=== PATIENT | female | born 1990 | race African-American/Black ===

== ENCOUNTER 2018-10-06 18:30 | Emergency (ER) | payer MEDICAID ==
[~2018-10-06] VITALS: Ht 162.6 cm; Wt 109.0 kg
[2018-10-06] MEDS ORDERED: BACITRACIN ZINC OINT UDPKT TOP ONE (19:45)
[2018-10-06] MEDS ORDERED: IBUPROFEN 800MG TABLET PO ONE (19:45)
[2018-10-06 20:04] VITALS: BP 117/77
== END 2018-10-06 22:22 | disposition home or self-care (01) ==
LOC: ER 19:37
DX: L60.0 Ingrowing nail (principal); F17.200 Nicotine dependence, unspecified, uncomplicated
CPT/HCPCS: 11730; 99284

== ENCOUNTER 2021-05-09 15:10 | Emergency (ER) | payer MEDICAID ==
[~2021-05-09] VITALS: Ht 162.6 cm; Wt 127.0 kg
[2021-05-09 15:39] VITALS: BP 134/89
== END 2021-05-09 16:11 | disposition left against medical advice (07) ==
LOC: ER 15:10
DX: Z53.21 Procedure and treatment not carried out due to patient leaving prior to being seen by health care provider (principal)

== ENCOUNTER 2023-04-16 15:14 | Emergency (ER) | payer MEDICAID ==
[~2023-04-16] VITALS: Ht 162.6 cm; Wt 118.2 kg
[2023-04-16] MEDS ORDERED: ACETAMINOPHEN 325MG TABLET PO PRN (16:15)
[2023-04-16 16:27] LABS: BASOPHILS % 0.7 % (0.0-2.0); EOSINOPHILS % 1.7 % (0.0-5.0); HEMATOCRIT. 36.9 % (36.0-48.0); HEMOGLOBIN. 12.3 g/dL (12.0-16.0); LYMPHOCYTES % 38.6 % (20.0-50.0); MEAN CORPUSCULAR HEMOGLOBIN 26.2 pg (28.0-32.0); MEAN PLATELET VOLUME 8.3 fl (7.4-10.4); MONOCYTES % 7.6 % (2.0-8.0); NEUTROPHILS % 51.4 % (40.0-76.0); PLATELET 358 x1000/uL (130-400); RED BLOOD CELL COUNT 4.67 mill/uL (4.2-5.4); RED CELL DISTRIBUTION WIDTH 15.6 % (11.6-14.6)
[2023-04-16 16:39] LABS: CHLORIDE 110 mEq/L (98-107)
[2023-04-16] MEDS ORDERED: IBUP-2028 MT (17:46)
[2023-04-16 18:07] VITALS: BP 136/72
== END 2023-04-16 18:10 | disposition home or self-care (01) ==
LOC: ER 15:14
DX: N93.8 Other specified abnormal uterine and vaginal bleeding (principal); R10.30 Lower abdominal pain, unspecified
CPT/HCPCS: 36415; 76830; 76856; 80053; 81025; 85025; 86850; 86900; 99284